=== PATIENT | male | born 1940 | race Caucasian/White ===

== ENCOUNTER 2017-05-16 12:14 | Emergency (ER) | payer BC, MEDICARE ==
[~2017-05-16] VITALS: Ht 172.7 cm; Wt 74.8 kg
[2017-05-16] MEDS: IV NORMAL SALINE 1000 ML BAG IV ONE (12:55)
[2017-05-16] MEDS: KETOROLAC TROMETHAMINE 15 MG INJ IVP ONE (12:55)
[2017-05-16] MEDS ORDERED: KETOROLAC TROMETHAMINE 15 MG INJ ONE (12:59)
[2017-05-16 13:04] LABS: BASOPHILS # (AUTO) 0.1 K/uL (0.0-8.0); BASOPHILS % (AUTO) 1.5 % (0.0-2.0); EOSINOPHILS # (AUTO) 0.2 K/uL (0.0-0.7); EOSINOPHILS % (AUTO) 1.7 % (0.0-7.0); HEMOGLOBIN 15.3 G/DL (14.0-18.0); LYMPHOCYTES # (AUTO) 1.7 K/UL (0.8-4.8); LYMPHOCYTES % (AUTO) 17.9 % (20.5-51.5); MEAN CORPUSCULAR HEMOGLOBIN 30.3 UUG (27.0-31.0); MEAN CORPUSCULAR HGB CONC 33 g/dL (32.0-37.0); MEAN CORPUSCULAR VOLUME 93.1 FL (82.0-92.0); MONOCYTES # (AUTO) 0.5 K/UL (0.1-1.30); MONOCYTES % (AUTO) 5.7 % (0.0-11.0); NEUTROPHILS # (AUTO) 7.1 K/UL (1.8-8.9); NEUTROPHILS % (AUTO) 73.2 % (38.5-71.5); PLATELET COUNT (AUTO) 235 K/UL (150-450); RED BLOOD CELL COUNT(AUTO) 5.05 MIL/UL (4.7-6.1); WHITE BLOOD COUNT (AUTO) 9.6 K/UL (4.0-11.2)
[2017-05-16 13:11] LABS: CARBON DIOXIDE 30 mmol/L (21-32); CHLORIDE 104 mmol/L (98-107); CREATININE 1.2 mg/dL (0.6-1.3); GLUCOSE 275 mg/dL (74-106); POTASSIUM 5.2 mmol/L (3.5-5.1); UREA NITROGEN, BLOOD 14 mg/dL (7-18)
[2017-05-16 13:17] LABS: ALANINE AMINOTRANSFERASE 22 U/L (16-63); ALKALINE PHOSPHATASE 57 U/L (50-136); ASPARTATE AMINOTRANSFERASE 16 U/L (15-37); BILIRUBIN,DIRECT 0.1 mg/dL (0.0-0.2); BILIRUBIN,TOTAL 0.5 mg/dL (0.2-1.0); TOTAL PROTEIN, SERUM 7.1 g/dL (6.4-8.2)
--- NOTE | 2017-05-16 14:39 | NUR ---
IV removed. Catheter intact and site benign. Pressure and 4x4 gauze applied to site. No bleeding noted. Patient discharged to home in stable conditon. Written and verbal after care instructions given to patient and family. Patient and family verbalized understanding of instructions.
== END 2017-05-16 14:40 | disposition home or self-care (01) ==
LOC: ER 12:14
DX: E11.9 Type 2 diabetes mellitus without complications (principal); S22.39XA Fracture of one rib, unspecified side, initial encounter for closed fracture; S92.252A Displaced fracture of navicular [scaphoid] of left foot, initial encounter for closed fracture; W01.0XXA Fall on same level from slipping, tripping and stumbling without subsequent striking against object, initial encounter; Y93.89 Activity, other specified; Y99.8 Other external cause status; Y92.89 Other specified places as the place of occurrence of the external cause
CPT/HCPCS: 36415; 70030-TC; 71010; 73080; 73110; 73130; 85025; 85730; 93005; A4663; J1885; J7040

== ENCOUNTER 2017-05-19 10:19 | Emergency (ER) | payer MEDICARE ==
[~2017-05-19] VITALS: Ht 170.2 cm; Wt 74.8 kg
--- NOTE | 2017-05-19 10:49 | NUR ---
Patient discharged to home in stable conditon. Written and verbal after care instructions given. Patient verbalizes understanding of instructions.pt walks in steady gait.
== END 2017-05-19 10:52 | disposition home or self-care (01) ==
LOC: ER 10:19
DX: S22.42XG Multiple fractures of ribs, left side, subsequent encounter for fracture with delayed healing (principal); R10.9 Unspecified abdominal pain; X58.XXXD Exposure to other specified factors, subsequent encounter
CPT/HCPCS: A4663

== ENCOUNTER 2018-03-28 13:06 | Emergency (ER) | payer MEDICARE, OTHER ==
[~2018-03-28] VITALS: Ht 170.2 cm; Wt 76.2 kg
--- NOTE | 2018-03-28 14:37 | NUR ---
Patient discharged to home in stable conditon & brisk steady gait. Written and verbal after care instructions given to patient. Patient verbalizes understanding of instructions.
== END 2018-03-28 14:38 | disposition home or self-care (01) ==
LOC: ER 13:08
DX: J06.9 Acute upper respiratory infection, unspecified (principal)
CPT/HCPCS: 71046; 93005; 99284; A4663

== ENCOUNTER 2019-06-29 09:40 | Emergency (ER) | payer MEDICARE, OTHER ==
[~2019-06-29] VITALS: Ht 165.1 cm; Wt 72.6 kg
--- NOTE | 2019-06-29 10:09 | NUR ---
Patient seen by . labs done, urine sent to lab.
[2019-06-29 10:14] LABS: BASOPHILS % (AUTO) 0.7 % (0.0-2.0); EOSINOPHILS # (AUTO) 0.3 K/uL (0.0-0.7); EOSINOPHILS % (AUTO) 3.8 % (0.0-7.0); HEMATOCRIT 44.2 % (36.7-47.1); HEMOGLOBIN 15.1 g/dL (12.5-16.3); LYMPHOCYTES # (AUTO) 1.4 K/uL (20.0-40.0); LYMPHOCYTES % (AUTO) 21.6 % (20.5-51.5); MEAN CORPUSCULAR HEMOGLOBIN 31.3 uug (23.8-33.4); MEAN CORPUSCULAR HGB CONC 34 g/dL (32.5-36.3); MEAN CORPUSCULAR VOLUME 91.7 fL (73.0-96.2); MONOCYTES # (AUTO) 0.3 K/uL (2.0-10.0); MONOCYTES % (AUTO) 5.2 % (0.0-11.0); NEUTROPHILS # (AUTO) 4.5 K/uL (1.8-8.9); NEUTROPHILS % (AUTO) 68.7 % (38.5-71.5); PLATELET COUNT (AUTO) 212 K/uL (152-348); RED BLOOD CELL COUNT(AUTO) 4.82 MIL/uL (4.06-5.63); WHITE BLOOD COUNT (AUTO) 6.6 K/uL (3.6-10.2)
[2019-06-29 10:20] LABS: CARBON DIOXIDE 27 mmol/L (21-32); CHLORIDE 102 mmol/L (98-107); POTASSIUM 4.3 mmol/L (3.5-5.1); UREA NITROGEN, BLOOD 18 mg/dL (7-18)
[2019-06-29 10:21] LABS: GLUCOSE 356 mg/dL (74-106)
[2019-06-29 10:21] LABS: *BILIRUBIN,URIN NEGATIVE (NEGATIVE); *CLARITY,URINE CLEAR (CLEAR); *COLOR,URINE YELLOW (YELLOW); *KETONES,URINE TRACE (NEGATIVE); *UROBILINOGEN,URINE 0.2 E.U./dl (NORMAL); LEUKOCYTE ESTERASE ,URINE NEGATIVE (NEGATIVE); NITRITE, URINE NEGATIVE (NEGATIVE); PH,URINE 6.5 (5.0-8.0)
[2019-06-29 10:25] LABS: *BLOOD, URINE TRACE (NEGATIVE); UGLUCOSE 2+ (NEGATIVE)
[2019-06-29 10:25] LABS: ALANINE AMINOTRANSFERASE 20 U/L (16-63); ALKALINE PHOSPHATASE 77 U/L (50-136); ASPARTATE AMINOTRANSFERASE 11 U/L (15-37); BILIRUBIN,DIRECT 0.1 mg/dL (0.0-0.2); BILIRUBIN,TOTAL 0.4 mg/dL (0.2-1.0); LIPASE 113 U/L (73-393); TOTAL PROTEIN, SERUM 6.9 g/dL (6.4-8.2)
[2019-06-29 10:27] LABS: BACTERIA,URINE FEW /HPF (NONE SEEN); RBC,URINE 0-3 /HPF (0-3); SQUAMOUS EPITHELIAL CELL,UR FEW /HPF (NONE SEEN); WBC,URINE 0-3 /HPF (0-3)
--- NOTE | 2019-06-29 11:40 | NUR ---
awaiting ct scan results. patient is awake and alert with no new complaints. He is ambulatory with steady gait.
--- NOTE | 2019-06-29 12:02 | NUR ---
DC and follow up instructions given and explained to patient who states he understands all instructions.
== END 2019-06-29 12:12 | disposition home or self-care (01) ==
LOC: ER 09:40
DX: M54.5 Low back pain (principal); R10.9 Unspecified abdominal pain; E11.65 Type 2 diabetes mellitus with hyperglycemia; I10 Essential (primary) hypertension
CPT/HCPCS: 36415; 83690; 85025; A4663

== ENCOUNTER 2024-07-08 02:54 | Emergency (ER) | payer MEDICARE, OTHER ==
[~2024-07-08] VITALS: Ht 167.6 cm; Wt 67.1 kg
[~2024-07-08 02:54] MED LIST: SULF1TAB48 PO
[2024-07-08] MEDS ORDERED: CEPH500T PO (03:42)
[2024-07-08] MEDS ORDERED: LIDOCAINE HCL 1% 20 ML VIAL ONE (03:42)
[2024-07-08] MEDS ORDERED: CEFTRIAXONE 1 G VIAL ONE (03:42)
[2024-07-08] MEDS ORDERED: SULF1TAB48 PO (03:42)
[2024-07-08] MEDS ORDERED: SULFAMETH/TRIMETH 800/160 MG TABLET ONE (03:42)
[2024-07-08] MEDS: SULFAMETH/TRIMETH 800/160 MG TABLET PO ONE (03:48)
[2024-07-08] MEDS: CEFTRIAXONE 1 G VIAL IM ONE (03:48)
[2024-07-08] MEDS ORDERED: TDAP DIPH,PERTUSS,TET VAC/PF 0.5 ML DISP.SYRIN IM ONE (03:50)
[2024-07-08 03:56] VITALS: BP 151/90; TEMP 98.6; O2SAT 99
== END 2024-07-08 03:57 | disposition home or self-care (01) ==
LOC: ER 03:04
DX: L03.116 Cellulitis of left lower limb (principal); E11.9 Type 2 diabetes mellitus without complications; N40.0 Benign prostatic hyperplasia without lower urinary tract symptoms; Z98.890 Other specified postprocedural states; Z90.49 Acquired absence of other specified parts of digestive tract; Z79.899 Other long term (current) drug therapy; Z60.2 Problems related to living alone
CPT/HCPCS: 99284; 90715; 96372; 90471; J0696; A4606; A4663; J3490

== ENCOUNTER 2024-07-09 04:43 | Emergency (ER) | payer MEDICARE, OTHER ==
[~2024-07-09] VITALS: Ht 167.6 cm; Wt 67.1 kg
[~2024-07-09 04:43] MED LIST changes: +CEPH500T PO
--- NOTE | 2024-07-09 05:13 | NUR ---
at bedside for MSE
--- NOTE | 2024-07-09 05:30 | NUR ---
Patient discharged to home in stable condition on steady gait. Written and verbal after care instructions given. Patient verbalizes understanding of instructions. Stressed follow up or return to ER for worsening s/s.
[2024-07-09 05:33] VITALS: BP 144/78; TEMP 97.8; O2SAT 98
== END 2024-07-09 05:30 | disposition home or self-care (01) ==
LOC: ER 04:45
DX: L03.116 Cellulitis of left lower limb (principal); E11.9 Type 2 diabetes mellitus without complications; Z98.890 Other specified postprocedural states; Z90.49 Acquired absence of other specified parts of digestive tract; Z79.899 Other long term (current) drug therapy
CPT/HCPCS: A4606; A4663

== ENCOUNTER 2025-02-28 13:11 | Inpatient (IN) | payer MEDICARE, OTHER ==
[~2025-02-28] VITALS: Ht 170.2 cm; Wt 65.8 kg
[2025-02-28] MEDS ORDERED: DOXY100C5 PO (13:24)
[2025-02-28] MEDS ORDERED: METF-440 PO (13:25)
[2025-02-28] MEDS ORDERED: ACET-2605 PO (13:25)
[2025-02-28] MEDS ORDERED: ONDANSETRON 4 MG/2 ML VIAL ONE (13:40)
[2025-02-28] MEDS ORDERED: VANCOMYCIN IV 200 ML ONE (13:40)
[2025-02-28] MEDS ORDERED: MORPHINE SULFATE 4 MG/1 ML DISP.SYRIN ONE (13:40)
[2025-02-28] MEDS ORDERED: PIPERACILLIN/TAZOBACTAM/D5W 50 ML IV ONE ×2 (13:40→21:50)
[2025-02-28] MEDS: MORPHINE SULFATE 4 MG/1 ML DISP.SYRIN IV ONE (13:55)
[2025-02-28] MEDS: IV NORMAL SALINE 1000 ML BAG IV ONE (13:55)
[2025-02-28] MEDS: ONDANSETRON 4 MG/2 ML VIAL IV ONE (13:55)
[2025-02-28 13:56] LABS: BASOPHILS # (AUTO) 0.1 K/UL (0.0-0.2); BASOPHILS % (AUTO) 0.7 % (0.0-2.0); EOSINOPHILS % (AUTO) 0.1 % (0.0-7.0); HEMATOCRIT 39.5 % (36.7-47.1); HEMOGLOBIN 13.1 g/dL (12.5-16.3); LYMPHOCYTES # (AUTO) 1.1 K/uL (0.8-4.8); LYMPHOCYTES % (AUTO) 7.5 % (20.5-51.5); MEAN CORPUSCULAR HEMOGLOBIN 30.4 uug (23.8-33.4); MEAN CORPUSCULAR HGB CONC 33 g/dL (32.5-36.3); MEAN CORPUSCULAR VOLUME 91.6 fL (73.0-96.2); MONOCYTES # (AUTO) 0.9 K/uL (0.1-1.30); MONOCYTES % (AUTO) 5.8 % (0.0-11.0); NEUTROPHILS # (AUTO) 12.6 K/uL (1.8-8.9); NEUTROPHILS % (AUTO) 85.9 % (38.5-71.5); PLATELET COUNT (AUTO) 287 K/uL (152-348); RED BLOOD CELL COUNT(AUTO) 4.31 MIL/uL (4.06-5.63); RED CELL DISTRIBUTION WIDTH 14.3 % (12.1-16.2); WHITE BLOOD COUNT (AUTO) 14.7 K/uL (3.6-10.2)
[2025-02-28] MEDS: PIPERACILLIN SODIUM/TAZOBACTAM 3.375 G in IV DEXTROSE 5% 50 ML IV ONE ×2 (13:56→21:56)
[2025-02-28 14:01] LABS: CALCIUM 8.7 mg/dL (8.5-10.1); CARBON DIOXIDE 27 mmol/L (21-32); CHLORIDE 97 mmol/L (98-107); CREATININE 1.2 mg/dL (0.6-1.3); GLUCOSE 143 mg/dL (74-106); POTASSIUM 3.8 mmol/L (3.5-5.1); SODIUM SERUM 134 mmol/L (136-145); UREA NITROGEN, BLOOD 25 mg/dL (7-18)
[2025-02-28 14:05] LABS: DIFFERENTIAL COMMENT 1
[2025-02-28 14:07] LABS: ALANINE AMINOTRANSFERASE 18 U/L (16-63); ALBUMIN 2.7 g/dL (3.4-5.0); ALKALINE PHOSPHATASE 58 U/L (50-136); ASPARTATE AMINOTRANSFERASE 18 U/L (15-37); BILIRUBIN,DIRECT 0.4 mg/dL (0.0-0.2); BILIRUBIN,TOTAL 0.9 mg/dL (0.2-1.0); TOTAL PROTEIN, SERUM 6.9 g/dL (6.4-8.2)
[2025-02-28] MEDS: VANCOMYCIN 1G/D5W 200 ML PIGGYBACK IV ONE (14:22)
[2025-02-28 15:08] LABS: *BILIRUBIN,URIN NEGATIVE (NEGATIVE); *BLOOD, URINE 1+ (NEGATIVE); *CLARITY,URINE CLEAR (CLEAR); *COLOR,URINE YELLOW (YELLOW); *KETONES,URINE NEGATIVE (NEGATIVE); *PROTEIN,URINE NEGATIVE (NEGATIVE); LEUKOCYTE ESTERASE ,URINE NEGATIVE (NEGATIVE); NITRITE, URINE NEGATIVE (NEGATIVE); PH,URINE 5.5 (5.0-8.0); UGLUCOSE NEGATIVE (NEGATIVE)
[2025-02-28 15:22] LABS: RBC,URINE 0-3 /HPF (0-3); SQUAMOUS EPITHELIAL CELL,UR FEW /HPF (NONE SEEN); WBC,URINE 0-3 /HPF (0-3)
[2025-02-28] MEDS ORDERED: SULF1TAB48 PO (16:19)
[2025-02-28] MEDS ORDERED: CLOP75TA33 PO (16:20)
[2025-02-28 16:42] VITALS: BP 132/65; TEMP 97.6; O2SAT 98
[2025-02-28 19:05] VITALS: BP 112/60; TEMP 98.3
[2025-02-28] MEDS ORDERED: TEMAZEPAM 15 MG CAPSULE PO PRN (20:45)
[2025-02-28] MEDS ORDERED: ONDANSETRON 4 MG/2 ML VIAL IV PRN (20:45)
[2025-02-28] MEDS: DOCUSATE SODIUM 100 MG CAPSULE PO SCH (21:17)
[2025-02-28] MEDS: MORPHINE SULFATE 2 MG/1 ML DISP.SYRIN IV PRN (22:07)
[2025-03-01] MEDS: PANTOPRAZOLE SODIUM 40 MG TABLET.DR PO SCH (06:14)
[2025-03-01] MEDS ORDERED: PIPERACILLIN SODIUM/TAZO 3.375 GM VIAL ONE (06:24)
[2025-03-01 06:34] VITALS: BP 131/56; TEMP 98.4; O2SAT 98
[2025-03-01] MEDS: PIPERACILLIN SODIUM/TAZOBACTAM 3.375 G in IV DEXTROSE 5% 100 ML IV ONE (06:44)
[2025-03-01 06:54] LABS: BASOPHILS % (AUTO) 0.4 % (0.0-2.0); EOSINOPHILS # (AUTO) 0.1 K/uL (0.0-0.7); EOSINOPHILS % (AUTO) 0.5 % (0.0-7.0); HEMATOCRIT 29.5 % (36.7-47.1); HEMOGLOBIN 9.9 g/dL (12.5-16.3); LYMPHOCYTES # (AUTO) 1.3 K/uL (0.8-4.8); MEAN CORPUSCULAR HEMOGLOBIN 30.9 uug (23.8-33.4); MEAN CORPUSCULAR HGB CONC 34 g/dL (32.5-36.3); MEAN CORPUSCULAR VOLUME 91.8 fL (73.0-96.2); MONOCYTES # (AUTO) 0.8 K/uL (0.1-1.30); MONOCYTES % (AUTO) 7.6 % (0.0-11.0); NEUTROPHILS # (AUTO) 8.4 K/uL (1.8-8.9); NEUTROPHILS % (AUTO) 79.5 % (38.5-71.5); PLATELET COUNT (AUTO) 253 K/uL (152-348); RED BLOOD CELL COUNT(AUTO) 3.21 MIL/uL (4.06-5.63); RED CELL DISTRIBUTION WIDTH 14.5 % (12.1-16.2); WHITE BLOOD COUNT (AUTO) 10.5 K/uL (3.6-10.2)
[2025-03-01 07:13] LABS: IRON, SERUM 18 ug/dL (50-175)
[2025-03-01 07:19] LABS: ALANINE AMINOTRANSFERASE 16 U/L (16-63); ALBUMIN 2.3 g/dL (3.4-5.0); ALKALINE PHOSPHATASE 45 U/L (50-136); BILIRUBIN,TOTAL 0.5 mg/dL (0.2-1.0); CALCIUM 8.2 mg/dL (8.5-10.1); CARBON DIOXIDE 27 mmol/L (21-32); CHLORIDE 102 mmol/L (98-107); CHOLESTEROL 89 mg/dL (<200); GLUCOSE 123 mg/dL (74-106); HDL CHOLESTEROL 24 mg/dL (40-60); PHOSPHOROUS 3.3 mg/dL (2.5-4.9); POTASSIUM 3.9 mmol/L (3.5-5.1); SODIUM SERUM 138 mmol/L (136-145); TRIGLYCERIDES 72 MG/DL (30-150); UREA NITROGEN, BLOOD 21 mg/dL (7-18)
[2025-03-01 07:24] LABS: DIFFERENTIAL COMMENT 1
[2025-03-01 07:26] LABS: THYROID STIMULATING HORMONE 2.528 mIU/mL (0.358-3.740)
[2025-03-01 07:49] LABS: ASPARTATE AMINOTRANSFERASE 15 U/L (15-37)
[2025-03-01 11:31] VITALS: BP 118/64; TEMP 97.6; O2SAT 98
[2025-03-01] MEDS ORDERED: PIPERACILLIN SODIUM/TAZOBACTAM 3.375 G in IV DEXTROSE 5% 50 ML IV SCH (12:00)
[2025-03-01] MEDS ORDERED: VANCOMYCIN IV 1,250 MG in IV DEXTROSE 5% 250 ML IV SCH (12:00)
[2025-03-01] MEDS: VANCOMYCIN HCL 750 MG in IV DEXTROSE 5% 250 ML IV SCH (12:23)
[2025-03-01] MEDS: CADEXOMER IODINE 40 GM TUBE TOP SCH (14:11)
[2025-03-01] MEDS: PIPERACILLIN SODIUM/TAZOBACTAM 3.375 G in IV DEXTROSE 5% 100 ML IV SCH (14:12)
[2025-03-01 16:00] VITALS: BP 116/52; TEMP 98; O2SAT 97
[2025-03-01] MEDS: ACETAMINOPHEN 325 MG TABLET PO PRN (20:39)
[2025-03-01 21:27] VITALS: BP 123/64; TEMP 97.6; O2SAT 100
[2025-03-02 06:29] VITALS: BP 119/38; TEMP 97.6; O2SAT 98
[2025-03-02] MEDS: ARGININE/GLUTAMINE/CALCIUM BMB 1 EACH POWD.PACK PO SCH (08:47)
[2025-03-02 10:29] VITALS: BP 119/53; TEMP 98.6; O2SAT 98
[2025-03-02 14:42] VITALS: BP 135/57; TEMP 98.8; O2SAT 97
[2025-03-03 05:12] VITALS: BP 120/54; TEMP 98.5; O2SAT 96
[2025-03-03 08:41] LABS: BASOPHILS # (AUTO) 0.1 K/UL (0.0-0.2); BASOPHILS % (AUTO) 0.9 % (0.0-2.0); EOSINOPHILS # (AUTO) 0.2 K/uL (0.0-0.7); EOSINOPHILS % (AUTO) 2.1 % (0.0-7.0); HEMATOCRIT 35.6 % (36.7-47.1); HEMOGLOBIN 11.9 g/dL (12.5-16.3); LYMPHOCYTES # (AUTO) 1.6 K/uL (0.8-4.8); LYMPHOCYTES % (AUTO) 15.7 % (20.5-51.5); MEAN CORPUSCULAR HEMOGLOBIN 30.6 uug (23.8-33.4); MEAN CORPUSCULAR HGB CONC 33 g/dL (32.5-36.3); MEAN CORPUSCULAR VOLUME 91.7 fL (73.0-96.2); MONOCYTES # (AUTO) 0.8 K/uL (0.1-1.30); MONOCYTES % (AUTO) 7.6 % (0.0-11.0); NEUTROPHILS # (AUTO) 7.5 K/uL (1.8-8.9); NEUTROPHILS % (AUTO) 73.7 % (38.5-71.5); PLATELET COUNT (AUTO) 341 K/uL (152-348); RED BLOOD CELL COUNT(AUTO) 3.88 MIL/uL (4.06-5.63); RED CELL DISTRIBUTION WIDTH 14.5 % (12.1-16.2); WHITE BLOOD COUNT (AUTO) 10.1 K/uL (3.6-10.2)
[2025-03-03 08:45] LABS: DIFFERENTIAL COMMENT 1
[2025-03-03 09:02] LABS: CALCIUM 8.7 mg/dL (8.5-10.1); CARBON DIOXIDE 27 mmol/L (21-32); CHLORIDE 104 mmol/L (98-107); CREATININE 0.9 mg/dL (0.6-1.3); GLUCOSE 136 mg/dL (74-106); PHOSPHOROUS 3.5 mg/dL (2.5-4.9); POTASSIUM 3.9 mmol/L (3.5-5.1); SODIUM SERUM 141 mmol/L (136-145); UREA NITROGEN, BLOOD 17 mg/dL (7-18); VANCOMYCIN,TROUGH 11.2 ug/mL (10.0-20.0)
[2025-03-03] MEDS: VANCOMYCIN IV 1,000 MG in IV DEXTROSE 5% 250 ML IV SCH (09:28)
[2025-03-03 11:57] VITALS: BP 113/74; TEMP 97.6; O2SAT 99
[2025-03-03 15:59] VITALS: BP 141/56; TEMP 98.8; O2SAT 98
[2025-03-03 19:30] VITALS: BP 125/56; TEMP 98.2; O2SAT 97
[2025-03-04] MEDS: TEMAZEPAM 7.5 MG CAPSULE PO PRN (01:59)
[2025-03-04 04:57] VITALS: BP 141/51; TEMP 98; O2SAT 96
[2025-03-04 12:00] VITALS: BP 123/69; TEMP 97.2; O2SAT 98
[2025-03-04 16:00] VITALS: BP 124/65; TEMP 97.6; O2SAT 97
[2025-03-04 19:20] VITALS: BP 116/53; TEMP 98.1; O2SAT 97
[2025-03-04] MEDS ORDERED: MEROPENEM 1 G in IV NORMAL SALINE 100 ML IV SCH (21:30)
[2025-03-04] MEDS ORDERED: MEROPENEM 1GM/NS 100ML IVPB **ER PYXIS ONLY IV ONE (21:55)
[2025-03-04] MEDS: MEROPENEM 1 G in IV NORMAL SALINE 100 ML IV ONE (21:59)
[2025-03-05 04:35] VITALS: BP 149/74; TEMP 97.6; O2SAT 97
[2025-03-05 06:29] LABS: BASOPHILS # (AUTO) 0.1 K/UL (0.0-0.2); BASOPHILS % (AUTO) 0.8 % (0.0-2.0); EOSINOPHILS # (AUTO) 0.2 K/uL (0.0-0.7); EOSINOPHILS % (AUTO) 1.9 % (0.0-7.0); HEMATOCRIT 33.3 % (36.7-47.1); HEMOGLOBIN 11.3 g/dL (12.5-16.3); LYMPHOCYTES # (AUTO) 1.8 K/uL (0.8-4.8); LYMPHOCYTES % (AUTO) 15.5 % (20.5-51.5); MEAN CORPUSCULAR HEMOGLOBIN 30.8 uug (23.8-33.4); MEAN CORPUSCULAR HGB CONC 34 g/dL (32.5-36.3); MEAN CORPUSCULAR VOLUME 90.6 fL (73.0-96.2); MONOCYTES # (AUTO) 0.9 K/uL (0.1-1.30); MONOCYTES % (AUTO) 7.9 % (0.0-11.0); NEUTROPHILS # (AUTO) 8.4 K/uL (1.8-8.9); NEUTROPHILS % (AUTO) 73.9 % (38.5-71.5); PLATELET COUNT (AUTO) 416 K/uL (152-348); RED BLOOD CELL COUNT(AUTO) 3.68 MIL/uL (4.06-5.63); RED CELL DISTRIBUTION WIDTH 14.6 % (12.1-16.2); WHITE BLOOD COUNT (AUTO) 11.3 K/uL (3.6-10.2)
[2025-03-05 06:45] LABS: DIFFERENTIAL COMMENT 1
[2025-03-05 06:57] LABS: ALANINE AMINOTRANSFERASE 28 U/L (16-63); ALBUMIN 2.3 g/dL (3.4-5.0); ALKALINE PHOSPHATASE 48 U/L (50-136); ASPARTATE AMINOTRANSFERASE 20 U/L (15-37); BILIRUBIN,TOTAL 0.4 mg/dL (0.2-1.0); CALCIUM 8.7 mg/dL (8.5-10.1); CARBON DIOXIDE 29 mmol/L (21-32); CHLORIDE 104 mmol/L (98-107); GLUCOSE 125 mg/dL (74-106); PHOSPHOROUS 2.9 mg/dL (2.5-4.9); POTASSIUM 4.1 mmol/L (3.5-5.1); SODIUM SERUM 140 mmol/L (136-145); TOTAL PROTEIN, SERUM 6.5 g/dL (6.4-8.2); UREA NITROGEN, BLOOD 16 mg/dL (7-18); VANCOMYCIN,TROUGH 16.3 ug/mL (10.0-20.0)
[2025-03-05] MEDS: MEROPENEM 1 G in IV NORMAL SALINE 100 ML IV SCH (08:12)
[2025-03-05] MEDS: MAGNESIUM HYDROXIDE 30 ML LIQUID UDC PO PRN (11:13)
[2025-03-05 11:31] VITALS: BP 122/66; TEMP 97.7; O2SAT 99
[2025-03-05] MEDS: ZINC SULFATE 220 MG CAPSULE PO SCH (15:35)
[2025-03-05] MEDS: ASCORBIC ACID 500 MG TABLET PO SCH (15:35)
[2025-03-05 15:52] VITALS: BP 135/62; TEMP 98; O2SAT 97
[2025-03-05] MEDS: PROTEIN SUPPLEMENT (PROSTAT) 30 ML LIQUID PO SCH (16:02)
[2025-03-05 19:47] VITALS: BP 110/55; TEMP 98.3; O2SAT 98
[2025-03-05] MEDS: ENOXAPARIN SODIUM 40 MG/0.4 ML DISP.SYRIN SQ SCH (20:21)
[2025-03-06 06:00] VITALS: BP 137/68; TEMP 97.9; O2SAT 98
[2025-03-06 11:35] VITALS: BP 107/62; TEMP 97.2; O2SAT 98
[2025-03-06] MEDS: MEROPENEM 1 G in IV NORMAL SALINE 100 ML IV SCH (16:38)
[2025-03-06 16:54] VITALS: BP 151/75; TEMP 98.2; O2SAT 95
[2025-03-06 19:42] VITALS: BP 130/68; TEMP 98.1; O2SAT 98
[2025-03-06] MEDS ORDERED: ACETAMINOPHEN 650 MG SUPP.RECT RC PRN (20:00)
[2025-03-07] MEDS: IV D5 1/2 NS 1000 ML 1,000 ML IV PRN (01:56)
[2025-03-07 04:34] VITALS: BP 148/77; TEMP 97.7; O2SAT 96
[2025-03-07 06:50] LABS: BASOPHILS # (AUTO) 0.1 K/UL (0.0-0.2); BASOPHILS % (AUTO) 0.8 % (0.0-2.0); EOSINOPHILS # (AUTO) 0.1 K/uL (0.0-0.7); EOSINOPHILS % (AUTO) 1.4 % (0.0-7.0); HEMATOCRIT 38.9 % (36.7-47.1); HEMOGLOBIN 13.3 g/dL (12.5-16.3); LYMPHOCYTES # (AUTO) 1.4 K/uL (0.8-4.8); LYMPHOCYTES % (AUTO) 14.9 % (20.5-51.5); MEAN CORPUSCULAR HEMOGLOBIN 31.1 uug (23.8-33.4); MEAN CORPUSCULAR HGB CONC 34 g/dL (32.5-36.3); MEAN CORPUSCULAR VOLUME 90.8 fL (73.0-96.2); MONOCYTES # (AUTO) 0.6 K/uL (0.1-1.30); MONOCYTES % (AUTO) 6.5 % (0.0-11.0); NEUTROPHILS # (AUTO) 6.9 K/uL (1.8-8.9); NEUTROPHILS % (AUTO) 76.4 % (38.5-71.5); PLATELET COUNT (AUTO) 542 K/uL (152-348); RED BLOOD CELL COUNT(AUTO) 4.29 MIL/uL (4.06-5.63); RED CELL DISTRIBUTION WIDTH 14.4 % (12.1-16.2); WHITE BLOOD COUNT (AUTO) 9.1 K/uL (3.6-10.2)
[2025-03-07 06:57] LABS: DIFFERENTIAL COMMENT 1
[2025-03-07 07:05] LABS: CALCIUM 8.7 mg/dL (8.5-10.1); CARBON DIOXIDE 30 mmol/L (21-32); CHLORIDE 102 mmol/L (98-107); CREATININE 0.9 mg/dL (0.6-1.3); GLUCOSE 155 mg/dL (74-106); MAGNESIUM 2.2 mg/dL (1.8-2.4); PHOSPHOROUS 2.8 mg/dL (2.5-4.9); POTASSIUM 4.2 mmol/L (3.5-5.1); SODIUM SERUM 139 mmol/L (136-145); UREA NITROGEN, BLOOD 21 mg/dL (7-18)
[2025-03-07] MEDS ORDERED: GADOTERATE MEGLUMINE 10 MMOL/20 ML VIAL IV ONE (07:22)
[2025-03-07 11:41] VITALS: BP 128/48; TEMP 97.8; O2SAT 98
[2025-03-07] MEDS ORDERED: PROPOFOL 200 MG/20 ML BOTTLE ONE (14:30)
[2025-03-07] MEDS ORDERED: LIDOCAINE HCL 1% 20 ML VIAL ONE (15:17)
[2025-03-07] MEDS ORDERED: BUPIVACAINE PF 0.5% 30 ML VIAL ONE (15:17)
[2025-03-07] MEDS ORDERED: LABETALOL HCL 100 MG/20 ML VIAL ONE (16:57)
[2025-03-07] MEDS ORDERED: FENTANYL CITRATE 100 MCG/2 ML AMPUL ONE (17:05)
[2025-03-07] MEDS: LABETALOL HCL 100 MG/20 ML VIAL IV ONE (17:06)
[2025-03-07] MEDS: FENTANYL CITRATE 100 MCG/2 ML AMPUL IV PRN (17:08)
[2025-03-07] MEDS ORDERED: ONDANSETRON 4 MG/2 ML VIAL IV PRN (17:15)
[2025-03-07] MEDS: BLOOD SUGAR DIAGNOSTIC 1 EACH STRIP VI ONE (17:46)
[2025-03-07 18:00] VITALS: BP 136/54; TEMP 97.6; O2SAT 97
[2025-03-07 19:20] VITALS: BP 119/48; TEMP 98.2; O2SAT 97
[2025-03-08 04:27] VITALS: BP 143/64; TEMP 97.7; O2SAT 98
[2025-03-08 06:52] LABS: BASOPHILS # (AUTO) 0.1 K/UL (0.0-0.2); BASOPHILS % (AUTO) 0.6 % (0.0-2.0); EOSINOPHILS # (AUTO) 0.1 K/uL (0.0-0.7); HEMATOCRIT 34.4 % (36.7-47.1); HEMOGLOBIN 11.5 g/dL (12.5-16.3); LYMPHOCYTES # (AUTO) 1.3 K/uL (0.8-4.8); LYMPHOCYTES % (AUTO) 12.1 % (20.5-51.5); MEAN CORPUSCULAR HEMOGLOBIN 30.2 uug (23.8-33.4); MEAN CORPUSCULAR HGB CONC 33 g/dL (32.5-36.3); MEAN CORPUSCULAR VOLUME 90.6 fL (73.0-96.2); MONOCYTES # (AUTO) 0.9 K/uL (0.1-1.30); MONOCYTES % (AUTO) 8.2 % (0.0-11.0); NEUTROPHILS # (AUTO) 8.6 K/uL (1.8-8.9); NEUTROPHILS % (AUTO) 78.1 % (38.5-71.5); PLATELET COUNT (AUTO) 509 K/uL (152-348); RED CELL DISTRIBUTION WIDTH 14.4 % (12.1-16.2); WHITE BLOOD COUNT (AUTO) 11.1 K/uL (3.6-10.2)
[2025-03-08 07:03] LABS: CALCIUM 8.1 mg/dL (8.5-10.1); CARBON DIOXIDE 28 mmol/L (21-32); CHLORIDE 103 mmol/L (98-107); GLUCOSE 169 mg/dL (74-106); POTASSIUM 4.2 mmol/L (3.5-5.1); SODIUM SERUM 139 mmol/L (136-145); UREA NITROGEN, BLOOD 17 mg/dL (7-18)
[2025-03-08 07:06] LABS: DIFFERENTIAL COMMENT 1
[2025-03-08 12:00] VITALS: BP 105/58; TEMP 97.8; O2SAT 98
[2025-03-08] MEDS: ENOXAPARIN SODIUM 40 MG/0.4 ML DISP.SYRIN SQ SCH (14:00)
[2025-03-08 16:00] VITALS: BP 139/65; TEMP 97; O2SAT 97
[2025-03-08 20:16] VITALS: BP 114/44; TEMP 99.2; O2SAT 99
[2025-03-09 06:48] LABS: CALCIUM 8.3 mg/dL (8.5-10.1); CARBON DIOXIDE 31 mmol/L (21-32); CHLORIDE 105 mmol/L (98-107); GLUCOSE 160 mg/dL (74-106); POTASSIUM 4.2 mmol/L (3.5-5.1); SODIUM SERUM 140 mmol/L (136-145); UREA NITROGEN, BLOOD 22 mg/dL (7-18)
[2025-03-09 06:57] LABS: BASOPHILS # (AUTO) 0.1 K/UL (0.0-0.2); BASOPHILS % (AUTO) 0.6 % (0.0-2.0); EOSINOPHILS # (AUTO) 0.2 K/uL (0.0-0.7); EOSINOPHILS % (AUTO) 1.7 % (0.0-7.0); HEMATOCRIT 35.4 % (36.7-47.1); LYMPHOCYTES # (AUTO) 1.5 K/uL (0.8-4.8); LYMPHOCYTES % (AUTO) 16.7 % (20.5-51.5); MEAN CORPUSCULAR HGB CONC 34 g/dL (32.5-36.3); MEAN CORPUSCULAR VOLUME 91.2 fL (73.0-96.2); MONOCYTES # (AUTO) 0.6 K/uL (0.1-1.30); NEUTROPHILS # (AUTO) 6.8 K/uL (1.8-8.9); PLATELET COUNT (AUTO) 517 K/uL (152-348); RED BLOOD CELL COUNT(AUTO) 3.89 MIL/uL (4.06-5.63); RED CELL DISTRIBUTION WIDTH 14.2 % (12.1-16.2); WHITE BLOOD COUNT (AUTO) 9.2 K/uL (3.6-10.2)
[2025-03-09 06:59] LABS: DIFFERENTIAL COMMENT 1
[2025-03-09 07:41] VITALS: BP 152/54; TEMP 99.1; O2SAT 98
[2025-03-09 11:17] VITALS: BP 119/62; TEMP 98.6; O2SAT 100
[2025-03-09 15:58] VITALS: BP 129/66; TEMP 98; O2SAT 96
[2025-03-09 19:46] VITALS: BP 134/63; TEMP 98.6; O2SAT 96
[2025-03-10 04:42] VITALS: BP 144/60; TEMP 97.7; O2SAT 98
[2025-03-10 06:47] LABS: BASOPHILS # (AUTO) 0.1 K/UL (0.0-0.2); BASOPHILS % (AUTO) 0.6 % (0.0-2.0); EOSINOPHILS # (AUTO) 0.2 K/uL (0.0-0.7); EOSINOPHILS % (AUTO) 2.1 % (0.0-7.0); HEMATOCRIT 34.4 % (36.7-47.1); HEMOGLOBIN 11.6 g/dL (12.5-16.3); LYMPHOCYTES # (AUTO) 1.5 K/uL (0.8-4.8); LYMPHOCYTES % (AUTO) 16.2 % (20.5-51.5); MEAN CORPUSCULAR HEMOGLOBIN 30.6 uug (23.8-33.4); MEAN CORPUSCULAR HGB CONC 34 g/dL (32.5-36.3); MEAN CORPUSCULAR VOLUME 90.5 fL (73.0-96.2); MONOCYTES # (AUTO) 0.6 K/uL (0.1-1.30); MONOCYTES % (AUTO) 6.9 % (0.0-11.0); NEUTROPHILS # (AUTO) 6.9 K/uL (1.8-8.9); NEUTROPHILS % (AUTO) 74.2 % (38.5-71.5); PLATELET COUNT (AUTO) 548 K/uL (152-348); RED CELL DISTRIBUTION WIDTH 14.4 % (12.1-16.2); WHITE BLOOD COUNT (AUTO) 9.2 K/uL (3.6-10.2)
[2025-03-10 06:56] LABS: CALCIUM 8.7 mg/dL (8.5-10.1); CARBON DIOXIDE 28 mmol/L (21-32); CHLORIDE 106 mmol/L (98-107); CREATININE 0.9 mg/dL (0.6-1.3); GLUCOSE 155 mg/dL (74-106); POTASSIUM 4.1 mmol/L (3.5-5.1); SODIUM SERUM 141 mmol/L (136-145); UREA NITROGEN, BLOOD 20 mg/dL (7-18)
[2025-03-10] MEDS ORDERED: PROPOFOL 200 MG/20 ML BOTTLE ONE (07:00)
[2025-03-10] MEDS ORDERED: BUPIVACAINE PF 0.5% 30 ML VIAL ONE (07:04)
[2025-03-10] MEDS ORDERED: LIDOCAINE HCL 1% 20 ML VIAL ONE (07:04)
[2025-03-10 07:15] LABS: DIFFERENTIAL COMMENT 1
[2025-03-10] MEDS ORDERED: ZINC1CAP3 PO (10:29)
[2025-03-10] MEDS ORDERED: ACET650S13 RC (10:29)
[2025-03-10] MEDS ORDERED: PANT40TA49 PO (10:29)
[2025-03-10] MEDS ORDERED: ACET325T53 PO (10:29)
[2025-03-10] MEDS ORDERED: MERO1PIG IV (10:29)
[2025-03-10] MEDS ORDERED: ENOX40DI SQ (10:29)
[2025-03-10] MEDS ORDERED: NUTR1PAC14 PO (10:29)
[2025-03-10] MEDS ORDERED: MAGN400O6 PO (10:29)
[2025-03-10] MEDS ORDERED: PROT30LI PO (10:29)
[2025-03-10] MEDS ORDERED: ASCO500T21 PO (10:29)
[2025-03-10] MEDS ORDERED: HYDR-894 PO (10:29)
[2025-03-10] MEDS ORDERED: DOCU-141 PO (10:29)
[2025-03-10] MEDS ORDERED: TRAMADOL HCL 50 MG TABLET PO PRN (10:30)
[2025-03-10] MEDS ORDERED: TRAM50TA2 PO (10:32)
[2025-03-10 12:49] VITALS: BP 174/104; TEMP 97.8; O2SAT 98
[2025-03-10 13:39] VITALS: BP 164/96; O2SAT 98
[2025-03-10] MEDS: hydrALAZINE HCL 25 MG TABLET PO PRN (13:50)
[2025-03-10] MEDS: MORPHINE SULFATE 2 MG/1 ML DISP.SYRIN IV ONE (15:22)
[2025-03-10 16:01] VITALS: BP 154/95; TEMP 97.7; O2SAT 99
== END 2025-03-10 23:30 | DRG 477 ==
LOC: ER 13:11 → MEDSURG3 15:36
PROVIDERS: ADMIT Internal Medicine; ATTEND Internal Medicine
PROC: 0QBP0ZX Excision of Left Metatarsal, Open Approach, Diagnostic (ICD-10-PCS; 2025-03-07)
PROC: 0J9R0ZZ Drainage of Left Foot Subcutaneous Tissue and Fascia, Open Approach (ICD-10-PCS; 2025-03-07)
PROC: 0Y6S0Z0 Detachment at Left 2nd Toe, Complete, Open Approach (ICD-10-PCS; principal; 2025-03-07 15:30)
PROC: 02HV33Z Insertion of Infusion Device into Superior Vena Cava, Percutaneous Approach (ICD-10-PCS; 2025-03-09)
PROC: 0JQR0ZZ Repair Left Foot Subcutaneous Tissue and Fascia, Open Approach (ICD-10-PCS; 2025-03-10)
PROC: 0KBW0ZZ Excision of Left Foot Muscle, Open Approach (ICD-10-PCS; 2025-03-10)
DX: T87.44 Infection of amputation stump, left lower extremity (principal); N17.0 Acute kidney failure with tubular necrosis; D68.59 Other primary thrombophilia; L03.116 Cellulitis of left lower limb; E11.52 Type 2 diabetes mellitus with diabetic peripheral angiopathy with gangrene; M86.8X7 Other osteomyelitis, ankle and foot; E44.0 Moderate protein-calorie malnutrition; L02.612 Cutaneous abscess of left foot; E11.69 Type 2 diabetes mellitus with other specified complication; E86.0 Dehydration; E11.621 Type 2 diabetes mellitus with foot ulcer; L97.524 Non-pressure chronic ulcer of other part of left foot with necrosis of bone; M65.172 Other infective (teno)synovitis, left ankle and foot; M79.89 Other specified soft tissue disorders; Z74.09 Other reduced mobility; Z68.22 Body mass index [BMI] 22.0-22.9, adult; E78.5 Hyperlipidemia, unspecified; E11.42 Type 2 diabetes mellitus with diabetic polyneuropathy
CPT/HCPCS: 36415; 71045; 73630; 73700; 83550; 83605; 83735; 84100; 84443; 85025; 85610; 85651; 85730; 86140; 87040; 87086; A4649; A4663; A6209; A6213; A9575; G0378; J1650; J2185; J2270; J2405; J2543; J3010; J3370; J3490; J7040; J7042; J7050

== ENCOUNTER 2025-09-20 08:19 | Emergency (ER) | payer MEDICARE, OTHER ==
[~2025-09-20] VITALS: Ht 170.2 cm; Wt 68.0 kg
[~2025-09-20 08:19] MED LIST changes: +ACET-2605 PO; +ACET325T53 PO; +ACET650S13 RC; +ASCO500T21 PO; -CEPH500T PO; +CLOP75TA33 PO; +DOCU-141 PO; +ENOX40DI SQ; +HYDR-894 PO; +MAGN400O6 PO; +MERO1PIG IV; +METF-440 PO; +NUTR1PAC14 PO; +PANT40TA49 PO; +PROT30LI PO; -SULF1TAB48 PO; +TRAM50TA2 PO; +ZINC1CAP3 PO
[2025-09-20 08:24] VITALS: BP 148/91
[2025-09-20] MEDS ORDERED: MAGNESIUM HYDROXIDE 30 ML LIQUID UDC ONE (09:11)
[2025-09-20] MEDS: MAGNESIUM HYDROXIDE 30 ML LIQUID UDC PO ONE (09:15)
[2025-09-20 09:28] LABS: PLATELET COUNT (AUTO) 205 K/uL (152-348); RED BLOOD CELL COUNT(AUTO) 4.82 MIL/uL (4.06-5.63); RED CELL DISTRIBUTION WIDTH 14.1 % (12.1-16.2); WHITE BLOOD COUNT (AUTO) 6.8 K/uL (3.6-10.2)
[2025-09-20 09:46] LABS: CREATININE 1.2 mg/dL (0.6-1.3); SODIUM SERUM 138 mmol/L (136-145); UREA NITROGEN, BLOOD 20 mg/dL (7-18)
[2025-09-20] MEDS ORDERED: FLAS1EAC2 TP (10:17)
[2025-09-20] MEDS ORDERED: FLAS1KIT2 TP (10:17)
[2025-09-20 10:27] VITALS: BP 132/87; O2SAT 96
== END 2025-09-20 10:28 | disposition home or self-care (01) ==
LOC: ER 08:19
DX: K59.00 Constipation, unspecified (principal); E11.9 Type 2 diabetes mellitus without complications; E78.5 Hyperlipidemia, unspecified; I51.9 Heart disease, unspecified; Z79.02 Long term (current) use of antithrombotics/antiplatelets; Z79.84 Long term (current) use of oral hypoglycemic drugs; Z79.899 Other long term (current) drug therapy; Z85.828 Personal history of other malignant neoplasm of skin
CPT/HCPCS: 36415; 74018; 85025; A4606; A4663